=== PATIENT | female | born 1980 | race Caucasian/White ===

== ENCOUNTER 2022-10-25 10:56 | Emergency (ER) | payer SELFPAY ==
[2022-10-25] MEDS: Bupivacaine 0.5% 10 ML SDV INJECT ONE (11:43)
[2022-10-25] MEDS: Diphtheria,Pertussis(Acell),Tetanus Vaccine 0.5 ML Syringe IM ONE (12:21)
== END 2022-10-25 12:27 | disposition home or self-care (01) ==
LOC: LB.ED 10:56
DX: S01.81XA Laceration without foreign body of other part of head, initial encounter (principal); Z23 Encounter for immunization; W22.09XA Striking against other stationary object, initial encounter
CPT/HCPCS: 12011; 90471; 90715; 99283-25; J3490